=== PATIENT | male | born 1935 | race Two or more races ===

== ENCOUNTER 2020-03-11 08:12 | Day surgery (SDC) | payer MEDICARE, BC ==
--- NOTE | 2020-03-10 23:28 | Pre-Procedure Note/Attestation ---
Pre-Procedure Note/Attestation Complete Prior to Procedure Planned Procedure: right - Removal of cataract and placement of intraocular lens, right eye Attestation I attest that I discussed the nature of the procedure; its benefits; risks and complications; and alternatives (and the risks and benefits of such alterna tives), prior to the procedure, with the patient (or the patient's legal membership sales representative). I attest that, if there was a reasonable possibility of needing a blood transfusion, the patient (or the patient's legal membership sales representative) was given the [facility] standardized written summary, pursuant to the [place] Blood Safety Act ([place] Health and Safety Code # 1645, as amended). I attest that I re-evaluated the patient just prior to the surgery and that there has been no change in the patient's H&P, except as documented below: Mehrdad Villegas MD Mar 10, 2020 23:28
[2020-03-11] VITALS (10 sets, daily range): BP systolic 133–174; BP diastolic 78–95
[~2020-03-11] VITALS: Ht 170 cm; Wt 86.2 kg
[~2020-03-11 08:12] MED LIST: AMLODIPINE BES2.5 MG ORAL; ELIQUIS2.5 MG ORAL; FLOMAX0.4 MG ORAL; HYDROCHLOROTH12.5 MG ORAL; KEPPRA500 M4 ORAL; LISINOPRIL5 MG ORAL; METOPROLOL TART25 MG ORAL; PROSCAR5 MG ORAL; SERTRALINE HCL25 MG ORAL
[2020-03-11] MEDS: Tropicamide 1% Opth 15ml Soln RIGHT EYE SCH ×3 (09:04→09:23)
[2020-03-11] MEDS: Phenylephrine 10% Opth Soln 5ml RIGHT EYE SCH ×3 (09:05→09:23)
[2020-03-11] MEDS: Tobradex Opth Susp 2.5ml RIGHT EYE SCH ×3 (09:05→09:24)
[2020-03-11] MEDS: Vigamox Opth Soln 3ml RIGHT EYE SCH ×3 (09:06→09:24)
[2020-03-11] MEDS: Akten 3.5% 1ml Btl RIGHT EYE SCH ×3 (09:07→09:25)
[2020-03-11] MEDS: Diclofenac Sod 0.1% Op Soln RIGHT EYE SCH ×3 (09:07→09:24)
[2020-03-11] MEDS ORDERED: Lidocaine 1% MPF 10mg/ml 5ml ONE ×4 (09:41→12:38)
--- NOTE | 2020-03-11 09:48 | Anethesia Preoperative Eval ---
Anesthesia Pre-op PMH/ROS General Date of Evaluation: Mar 11, 2020 Time of Evaluation: 09:47 Anesthesiologist: Kristi ASA Score: ASA 3 Mallampati Score Class I : Soft palate, uvula, fauces, pillars visible Class II: Soft palate, uvula, fauces visible Class III: Soft palate, base of uvula visible Class IV: Only hard plate visible Mallampati Classification: Class II Surgeon: Bakari Diagnosis: R eye cataract Surgical Procedure: R eye cataract extraction Anesthesia History: none Social History: smoking - h/o Family History: no anesthesia problems Allergies: Coded Allergies: No Known Allergies (Unverified , 03/09/20) Medications: see eMAR Patient NPO?: Yes Past Medical History Cardiovascular: Reports: HTN; Denies: CAD, PR, valve dz, arrhythmia, other Gastrointestinal/Genitourinary: Reports: GERD; Denies: CRI, ESRD, other Neurologic/Psychiatric: Reports: CVA, depression/anxiety; Denies: dementia, TIA, other Endocrine: Reports: hypothyroidism; Denies: DM, steroids, other HEENT: Reports: cataract (L), cataract (R); Denies: glaucoma, [place] (L), [place] (R), other Hematology/Immune: Reports: anemia - mild, other - anicoagulated Musculoskeletal/Integumentary: Reports: OA; Denies: RA, DJD, DDD, edema, other PMH Narrative: as above PSxH Narrative: See H&P Anesthesia Pre-op Phys. Exam Physician Exam Last Vital Signs Date Time Temp Pulse Resp B/P (MAP) Pulse Ox O2 Delivery O2 Flow Rate FiO2 03/11/20 09:19 Room Air 03/11/20 08:57 97.4 60 18 174/95 93 Constitutional: NAD Neurologic: CN 2-12 intact Cardiovascular: RRR, no M/R/G Respiratory: CTA Gastrointestinal: S/NT/ND Airway Exam Mallampati Score: Class II MO: limited Neck: stiff ROM: limited Teeth: missing Dentures: no upper, no lower Anesthesia Pre-op A/P Labs see chart Studies Pre-op Studies: EKG - SR Risk Assessment & Plan Assessment: ASA 3 Plan: MAC Pre-Antibiotics Drug: none Barrington Berry MD Mar 11, 2020 09:48
[2020-03-11] MEDS ORDERED: LR 1000ml 1,000 ML IVLG SCH (10:00)
[2020-03-11] MEDS ORDERED: fentaNYL 100 mcg/2 mL IV PRN (10:00)
[2020-03-11] MEDS ORDERED: Sterile Water Irrig 1000ml IRRIG ONE (11:00)
[2020-03-11] MEDS ORDERED: fentaNYL 100 mcg/2 mL IV ONE (11:00)
[2020-03-11] MEDS ORDERED: NS Irrig 1000ml ONE (11:00)
[2020-03-11] MEDS ORDERED: LR 1000ml ONE (11:00)
[2020-03-11] MEDS ORDERED: Povidone-Iodine 5% opth solution ONE ×2 (11:25→12:39)
[2020-03-11] MEDS ORDERED: ePHEDrine 50mg/ml Inj ONE (11:43)
[2020-03-11] MEDS ORDERED: Sodium Chloride 10ml vial INJ ONE (11:43)
--- NOTE | 2020-03-11 12:26 | Discharge Instructions ---
Discharge Instructions Discharge Instructions Follow Up Orders Continue preop eye drops Wear eye shield at all times except to place eye drops Followup tomorrow in Dr Villegas's office For Congestive Heart Failure Reminder Report to your physician any weight gain of 5 pounds or more in one week. Mehrdad Villegas MD Mar 11, 2020 12:26
--- NOTE | 2020-03-11 12:29 | Brief Operative Note ---
Immediate Post Operative Note Operative Note Pre-op Diagnosis: Dense cataract, combined, right eye Procedure: Phaco PC IOL, OD Use of Vision Blue for capsular staining Post-op Diagnosis: same as pre-op Surgeon: Shy Villegas MD MS Aerial Photogrammetrist: none Anesthesiologist: Dr Berry Anesthesia: general Specimen: none Complications: none Fluids: see chart Implant(s) used?: Yes - ZCB00 22.0 Mehrdad Villegas MD Mar 11, 2020 12:29
--- NOTE | 2020-03-11 12:31 | Immediate Post-Op Evaluation ---
Immediate Post-Op Evalulation Immediate Post-Op Evalulation Procedure: R eye cataract extraction with IOL Date of Evaluation: Mar 11, 2020 Time of Evaluation: 12:31 IV Fluids: 500 Blood Products: none Estimated Blood Loss: none Urinary Output: none Blood Pressure Systolic: 135 Blood Pressure Diastolic: 76 Pulse Rate: 64 Respiratory Rate: 18 O2 Sat by Pulse Oximetry: 98 Temperature (Fahrenheit): 97.6 Pain Score (1-10): 1 Nausea: No Vomiting: No Complications none Patient Status: reacts, patent, none Hydration Status: adequate Barrington Berry MD Mar 11, 2020 12:31
[2020-03-11] MEDS ORDERED: prednisoLONE acetate 1% Opth Susp 1ml ONE (12:38)
[2020-03-11] MEDS ORDERED: Lidocaine 4% Amp 5ml ONE (12:38)
[2020-03-11] MEDS ORDERED: Maxitrol Opth Oint 3.5gm ONE (12:38)
[2020-03-11] MEDS ORDERED: EPINEPHrine 1mg/1ml Amp ONE (12:38)
[2020-03-11] MEDS ORDERED: BSS 15ml BTL ONE (12:39)
[2020-03-11] MEDS ORDERED: Bupivacaine 0.75% 30ml vial INJ ONE (12:39)
[2020-03-11] MEDS ORDERED: BSS 500ml btl ONE (12:39)
[2020-03-11] MEDS ORDERED: Sodium Hyaluronate 10 mg/ml 0.85ml ONE (12:39)
[2020-03-11] MEDS ORDERED: Tetracaine 0.5% Opth 4ml Soln ONE (12:39)
--- NOTE | 2020-03-12 22:31 | Operative Note - Dictated ---
DATE OF OPERATION: 03/11/2020 SURGEON: Mehrdad Villegas MD GYN SURGEON: None. ANESTHESIOLOGIST: Barrington Berry MD ANESTHESIA: General with LMA. PREOPERATIVE DIAGNOSIS: Dense combined cataract, right eye. POSTOPERATIVE DIAGNOSIS: Dense combined cataract, right eye. PROCEDURE: 1. Phacoemulsification of cataract, right eye. 2. Placement of posterior chamber intraocular lens, right eye (model [employer]él[employer] [id number], power 22.0). 3. Use of VisionBlue for capsular staining. SPECIMENS: None. COMPLICATIONS: None. INDICATIONS FOR SURGERY: The patient has had the painless progressive decrease in the visual acuity in the right eye secondary to cataract. The patient understands the risks of surgery including infection, bleeding, need for further surgery, loss of vision, no improvement in vision, loss of life, glaucoma, retinal detachment, understands these risks and elects to proceed with surgery. FINDINGS: The patient had a very dense +4 nuclear sclerotic cataract as well as a +3 cortical cataract and +4 posterior subcapsular cataract. In addition, he had posterior capsular fibrosis. There was minimal cortex present. OPERATIVE NOTE: After informed consent was obtained, the patient was brought into the operating room, placed in supine position. Cardiac and respiratory monitors were attached. A time-out was performed and all criteria were met and everyone in the room agreed. Prior to being draped, the patient was moving his eye around constantly, and it was decided to do a retrobulbar block followed by modified Van Lint block after IV sedation was given. This was done without difficulty. The eye was then attempted to be draped, and despite the IV sedation, the patient was constantly moving his body around as well as his head and was actually able to unsnap his arm restraints several times despite being given sedation. The patient was constantly moving his whole body and head, and it was felt that this would not be safe to do cataract surgery while he was doing this, and we elected to do general anesthesia with LMA. The drapes were removed and general anesthesia was induced without complications, and then the right eye was again draped and prepped in sterile manner for ocular surgery. A lid speculum was placed in the eye. A 1% lidocaine preservative-free was injected at the 9 o'clock limbus. A conjunctival peritomy from 8:30 to 9:30 was made and dissected posteriorly. Hemostasis was maintained with bipolar cautery. A 2.8 mm limbal incision was made centered approximately 8:30 and dissected anteriorly. A paracentesis was made at 12 o'clock and Shugarcaine was injected into the anterior chamber followed by an air bubble. The red reflex was very poor secondary to the dense cataract. After the injection of an air bubble, VisionBlue was injected into the anterior chamber for capsular staining and then this was irrigated free. Healon was injected into the anterior chamber. A 2.8 mm keratome was used to make an incision at the 9 o'clock limbus. An anterior capsulorrhexis was then performed. Hydrodissection and hydrodelineation of the lens was then performed. The lens was then phacoemulsified using divide and conquer four-quadrant technique. There was minimal if any residual cortical material and this was aspirated without difficulty. Healon was injected into the anterior chamber and then into the capsular bag. The lens was taken and the cartridge with tip was placed through the limbal incision and the lens was injected into the capsular bag and centered nicely with a Sinskey hook. Healon was aspirated from the anterior chamber and capsular bag. One 10-0 nylon interrupted suture was placed through the limbal incision after it was also hydrated closed. The paracentesis was then hydrated closed. All wounds were checked and found to be watertight. The conjunctiva was then closed with forceps cautery and the lid speculum and drapes were removed from the eye and drops of Pred Forte and moxifloxacin were applied to the eye followed by Maxitrol ointment and two patches and a shield. The patient was extubated in the operating room and left the operating room awake, alert, and in stable condition. Mehrdad Villegas M.D. DR: Ángel JOB#: [id number] CC:
== END 2020-03-11 13:35 | disposition home or self-care (01) ==
LOC: SUR 08:12
DX: H25.11 Age-related nuclear cataract, right eye (principal); H25.011 Cortical age-related cataract, right eye; H25.041 Posterior subcapsular polar age-related cataract, right eye; Z87.891 Personal history of nicotine dependence; I10 Essential (primary) hypertension; K21.9 Gastro-esophageal reflux disease without esophagitis; E03.9 Hypothyroidism, unspecified; M19.90 Unspecified osteoarthritis, unspecified site; F32.9 Major depressive disorder, single episode, unspecified; F41.9 Anxiety disorder, unspecified; Z86.73 Personal history of transient ischemic attack (TIA), and cerebral infarction without residual deficits
CPT/HCPCS: 66984; 94003; J0171; J1100; J2704; J3010; J3490; J7120; U0004; V2632; 94150